=== PATIENT | male | born 1980 | race Two or more races ===

== ENCOUNTER 2022-01-21 07:37 | Emergency (ER) | payer OTHER ==
[~2022-01-21] VITALS: Ht 180.3 cm; Wt 101.0 kg
--- NOTE | 2022-01-21 07:51 | PHYS DOC ---
General Adult EDM: Chief Complaint: FLANK PAIN HPI: HPI: 41-year-old male presents with chest pain and right flank pain. Patient states that he was watching television when he had sudden onset of chest pain which quickly radiated to his right flank. He describes it as severe, sharp, squeezing. The chest pain resolved first and he had persistent right flank pain on the way to the hospital. Bouncing in the car made the pain worse. It has subsided to a very mild level at this time. Patient had 1 episode of vomiting. He denies cardiopulmonary history. No history of kidney stones. He does not take any daily medications. Denies fever or chills. Review of Systems: Review of Systems: Constitutional: Denies fever or chills Eyes: Denies change in visual acuity HENT: Denies nasal congestion or sore throat Respiratory: Denies cough or shortness of breath Cardiovascular: Chest pain GI: Denies abdominal pain, nausea, vomiting, bloody stools or diarrhea : Denies dysuria Musculoskeletal: Right flank pain Integument: Denies rash Neurologic: Denies headache, focal weakness or sensory changes Endocrine: Denies polyuria or polydipsia Lymphatic: Denies swollen glands Psychiatric: Denies depression or anxiety Current Medications: Current Meds: Current Medications Medications (Trade) Dose Ordered Sig/Yvonne Start Time Stop Time Status Last Admin Dose Admin Morphine Sulfate (Morphine 4mg Syringe) 4 mg 1X ONCE 01/21/22 07:45 01/21/22 07:46 UNV Ondansetron HCl (Zofran) 4 mg 1X ONCE 01/21/22 07:45 01/21/22 07:46 UNV Sodium Chloride 1,000 ml @ 1,000 mls/hr 1X ONCE 01/21/22 07:45 01/21/22 08:44 UNV Physical Exam: PE: Constitutional: Well developed, well nourished, mild acute distress, non-toxic appearance. [] HENT: Normocephalic, atraumatic, bilateral external ears normal, oropharynx moist, no oral exudates, nose normal. [] Eyes: PERRLA, EOMI, conjunctiva normal, no discharge. [] Neck: Normal range of motion, no tenderness, supple, no stridor. [] Cardiovascular: Heart rate 56, regular rhythm, no murmur [] Lungs & Thorax: Bilateral breath sounds clear to auscultation [] Abdomen: Bowel sounds normal, soft, no tenderness, no masses, no pulsatile masses. [] Skin: Warm, dry, no erythema, no rash. [] Back: No tenderness, no CVA tenderness. [] Extremities: No tenderness, no cyanosis, no clubbing, ROM intact, no edema. [] Neurologic: Alert and oriented X 3, normal motor function, normal sensory function, no focal deficits noted. [] Psychologic: Affect normal, judgement normal, mood normal. [] EKG: EKG: Sinus rhythm, rate 56, normal axis, no ST elevation or depression. [] Radiology/Procedures: Radiology/Procedures: [] Impressions: INDICATION: Reason: flank pain / Spl. Instructions: / History: COMPARISON: None. TECHNIQUE: Axial CT images were obtained through the abdomen and pelvis without intravenous contrast. One or more of the following individualized dose reduction techniques were utilized for this examination: 1. Automated exposure control; 2. Adjustment of the mA and/or kV according to patient size; 3. Use of iterative reconstruction technique. FINDINGS: Vascular: No abdominal aortic aneurysm. Hepatobiliary: No intrahepatic biliary duct dilation. Pancreas: No peripancreatic edema. Spleen: Spleen unremarkable. Renal/Bladder: No hydronephrosis. 1 mm calcific density structures seen within the urinary bladder abutting the right ureterovesicular junction. Hydrocele partially seen. Gastrointestinal: No periappendiceal inflammatory changes. Mild degenerative changes of the spine. IMPRESSION: * No hydronephrosis but there is a 1 mm high density focus in the right side of the urinary bladder adjacent to the right ureterovesicular junction. This could be secondary to a recently passed right ureter stone. Electronically signed by: Raymond Gong MD (01/21/2022 8:32 AM) [id number] DICTATED AND SIGNED BY: RAYMOND GONG MD DATE: 01/21/22 3329 CC: KEIRA ISAACS DO; PCP,UNKNOWN ~ Heart Score: C/O Chest Pain: Yes HEART Score for Chest Pain: HEART Score for Chest Pain Response (Comments) Value History Slighlty/Non-Suspicious 0 ECG Normal 0 Age < 45 0 Risk Factors No Risk Factors 0 Total 0 Risk Factors: Risk Factors: DM, Current or recent (<one month) smoker, HTN, HLP, family history of CAD, obesity. Risk Scores: Score 0 - 3: 2.5% MACE over next 6 weeks - Discharge Home Score 4 - 6: 20.3% MACE over next 6 weeks - Admit for Clinical Observation Score 7 - 10: 72.7% MACE over next 6 weeks - Early Invasive Strategies Course & Med Decision Making: Course & Med Decision Making Pertinent Labs and Imaging studies reviewed. (See chart for details) The patient CT scan shows a 1 mm kidney stone that looks like it just passed into the bladder on the right side. His labs are unremarkable. His EKG is unremarkable. His troponin is negative. His urinalysis is negative for infection. He is now pain-free. He is stable for discharge at this time. [] Dragon Disclaimer: Dragon Disclaimer: This electronic medical record was generated, in whole or in part, using a voice recognition dictation system. Departure Departure: Impression: Primary Impression: Kidney stone Disposition: HOME / SELF CARE / HOMELESS Condition: STABLE Referrals: PCP,UNKNOWN (PCP) Patient Instructions: Kidney Stones, [id number] KEIRA ISAACS DO January 21, 2022 07:51
[2022-01-21] MEDS: IV NORMAL SALINE 1,000ML 1,000 ML IV ONE (07:52)
[2022-01-21] MEDS ORDERED: MORPHINE SULFATE 4 MG/ML DISP.SYRIN. ONE (07:56)
[2022-01-21] MEDS ORDERED: ONDANSETRON PF 4 MG/2 ML VIAL. ONE (07:56)
[2022-01-21] MEDS: ONDANSETRON PF 4 MG/2 ML VIAL. IVP ONE (08:00)
[2022-01-21 08:03] LABS: BASO % 0 % (0-3); EOS # 0.1 x10^3/uL (0.0-0.7); EOS % 1 % (0-3); HEMATOCRIT 45.6 % (39.0-53.0); HEMOGLOBIN 15.7 g/dL (13.0-17.5); LYMPH # 2.3 x10^3/uL (1.0-4.8); LYMPH % 40 % (24-48); MEAN CORPUSCULAR HEMOGLOBIN 30 pg (25-35); MEAN CORPUSCULAR HGB CONC 35 g/dL (31-37); MEAN CORPUSCULAR VOLUME 85 fL (79-100); MONO # 0.7 x10^3/uL (0.0-1.1); MONO % 13 % (0-9); NEUT # 2.6 x10^3uL (1.8-7.7); NEUT % 46 % (31-73); PLATELET COUNT 248 x10^3/uL (140-400); RED BLOOD COUNT 5.33 x10^6/uL (4.30-5.70); RED CELL DISTRIBUTION WIDTH 12.9 % (11.5-14.5); WHITE BLOOD COUNT 5.7 x10^3/uL (4.0-11.0)
[2022-01-21] MEDS: MORPHINE SULFATE 4 MG/ML DISP.SYRIN. IV ONE (08:05)
--- NOTE | 2022-01-21 08:15 | RAD ---
INDICATION: Reason: CP / Spl. Instructions: / History: COMPARISON: None. FINDINGS: Frontal view of chest obtained. No focal airspace consolidation. Cardiomediastinal contour unremarkable. No acute osseous abnormality. IMPRESSION: * No focal airspace consolidation or edema. Electronically signed by: Toni Gong MD (01/21/2022 8:13 AM) [id number]
[2022-01-21 08:16] LABS: CALCIUM 8.8 mg/dL (8.5-10.1); CREATININE 1.4 mg/dL (0.7-1.3); GFR 56.4; POTASSIUM 3.2 mmol/L (3.5-5.1)
[2022-01-21 08:22] LABS: ALBUMIN 4.1 g/dL (3.4-5.0); ALBUMIN/GLOBULIN RATIO 1.2 (1.0-1.7); TOTAL BILIRUBIN 0.6 mg/dL (0.2-1.0); TOTAL PROTEIN 7.5 g/dL (6.4-8.2)
--- NOTE | 2022-01-21 08:34 | RAD ---
INDICATION: Reason: flank pain / Spl. Instructions: / History: COMPARISON: None. TECHNIQUE: Axial CT images were obtained through the abdomen and pelvis without intravenous contrast. One or more of the following individualized dose reduction techniques were utilized for this examinat ion: 1. Automated exposure control; 2. Adjustment of the mA and/or kV according to patient size; 3 . Use of iterative reconstruction technique. FINDINGS: Vascular: No abdominal aortic aneurysm. Hepatobiliary: No intrahepatic biliary duct dilation. Pancreas: No peripancreatic edema. Spleen: Spleen unremarkable. Renal/Bladder: No hydronephrosis. 1 mm calcific density structures seen within the urinary bladder ab utting the right ureterovesicular junction. Hydrocele partially seen. Gastrointestinal: No periappendiceal inflammatory changes. Mild degenerative changes of the spine. IMPRESSION: * No hydronephrosis but there is a 1 mm high density focus in the right side of the urinary bladder adjacent to the right ureterovesicular junction. This could be secondary to a recently passed right ureter stone. Electronically signed by: Toni Gong MD (01/21/2022 8:32 AM) [id number]
[2022-01-21 09:48] LABS: BACTERIA,URINE 0 /HPF (0-FEW); CLARITY,URINE CLEAR; COLOR,URINE YELLOW; GLUCOSE,URINE NEG (NEG); NITRITE,URINE NEG (NEG); RBC,URINE 20-40 /HPF (0-2); SQUAMOUS EPITHELIAL CELL,UR OCC /LPF; UROBILINOGEN,URINE 0.2 mg/dL (0.2 mg/dL)
[2022-01-21 10:20] VITALS: BP 122/68
== END 2022-01-21 10:26 | disposition home or self-care (01) ==
LOC: ER 07:37
DX: N20.0 Calculus of kidney (principal)
CPT/HCPCS: 36415; 71045; 74176; 80053; 81001; 84484; 85025; 93005; 96361; 96374; 96375; 99285; J2270; J2405; J7030